=== PATIENT | female | born 1990 | race Caucasian/White ===

== ENCOUNTER 2018-06-13 15:36 | Inpatient (IN) | payer OTHER ==
[2018-06-13] MEDS ORDERED: methylPREDNISolone SOD SUCCI 125 MG/2 ML VIAL IV STA (15:50)
[2018-06-13] MEDS ORDERED: MAGNESIUM SULFATE-D5W PMX 1 GM in DEXTROSE/WATER 1 100ML.BAG IVPB STA (15:50)
[2018-06-13] MEDS ORDERED: SODIUM CHLORIDE 0.9% 500 ML 500 ML IV STA (15:50)
[2018-06-13] MEDS ORDERED: IPRATROPIUM 0.5 MG/2.5 ML NEBU INHALATION STA (15:50)
[2018-06-13] MEDS ORDERED: ALBUTEROL NEBULIZED 2.5 MG/3 ML INHALATION STA (15:50)
[2018-06-13] MEDS ORDERED: TERBUTALINE 1 MG/ML VIAL SQ STA (15:50)
--- NOTE | 2018-06-13 16:00 | ED ---
General Adult HPI - General Chief complaint: Shortness of Breath Stated complaint: SADIE Time Seen by Provider: 06/13/18 15:36 Source: patient, RN notes reviewed Mode of arrival: ambulatory Limitations: no limitations - History of Present Illness Initial comments: This is a 28-year-old female presents emergency Department with a past medical history significant for asthma. Patient comes in today stating over the last couple days her breathing is gotten worse. Patient states today she is so tight she can't get a deep breath and feels extremely short of breath. Patient states she has had a cough over the last couple days ago. Patient denies any sputum production. Patient denies any chest pain. Patient has any palpitations. Patient denies any fever though she had 1 in triage. Patient denies any abdominal pain patient denies nausea vomiting diarrhea. Patient states her symptoms are typical for her asthma attacks. - Related Data Home Medications Medication Instructions Recorded Confirmed Albuterol Inhaler [Ventolin Hfa 2 puff INHALATION RT-Q4H PRN 06/13/18 06/13/18 Inhaler] Allergies Allergy/AdvReac Type Severity Reaction Status Date / Time narcotics AdvReac states "i Uncoded 06/13/18 15:40 do not want any" Review of Systems ROS Statement: Those systems with pertinent positive or pertinent negative responses have been documented in the HPI. ROS Other: All systems not noted in ROS Statement are negative. Past Medical History Past Medical History: Asthma Additional Past Medical History / Comment(s): FX RIGHT WRIST 01/2015, WAS IN [facility] UNTIL 06/2015 History of Any Multi-Drug Resistant Organisms: None Reported Past Surgical History: Orthopedic Surgery Additional Past Surgical History / Comment(s): ORIF LEFT WRIST, PLATE AND SCREWS Past Anesthesia/Blood Transfusion Reactions: No Reported Reaction Past Psychological History: No Psychological Hx Reported Smoking Status: Current every day smoker Past Alcohol Use History: None Reported Past Drug Use History: None Reported - Past Family History Mother Family Medical History: No Reported History General Exam - General Exam Comments Initial Comments: GENERAL: Patient is well-developed and well-nourished. Patient is nontoxic and well- hydrated and is in moderate distress. ENT: Neck is soft and supple. No significant lymphadenopathy is noted. Oropharynx is clear. Moist mucous membranes. Neck has full range of motion without eliciting any pain. EYES: The sclera were anicteric and conjunctiva were pink and moist. Extraocular movements were intact and pupils were equal round and reactive to light. Eyelids were unremarkable. PULMONARY: Patient is diffusely wheezing and has significantly decreased breath sounds. CARDIOVASCULAR: Patient is tachycardic. ABDOMEN: Soft and nontender with normal bowel sounds. No palpable organomegaly was noted. There is no palpable pulsatile mass. SKIN: Skin is clear with no lesions or rashes and otherwise unremarkable. NEUROLOGIC: Patient is alert and oriented x3. Cranial nerves II through XII are grossly intact. Motor and sensory are also intact. Normal speech, volume and content. Symmetrical smile. MUSCULOSKELETAL: Normal extremities with adequate strength and full range of motion. No lower extremity swelling or edema. No calf tenderness. LYMPHATICS: No significant lymphadenopathy is noted PSYCHIATRIC: Normal psychiatric evaluation. Limitations: no limitations Course Vital Signs 06/13/18 06/13/18 06/13/18 15:39 16:04 16:29 Temperature 99.9 F H Pulse Rate 112 H 111 H 113 H Respiratory 28 H Rate Blood Pressure 113/67 O2 Sat by Pulse 91 L Oximetry Medical Decision Making - Medical Decision Making Patient's CAT scan shows no acute abnormality. Patient received multiple breathing treatments in the emergency department as well as steroids and terbutaline. Patient was feeling better however she was still wheezing diffusely and very tight. I spoke with Dr. Evans and he agreed to admit the patient admitted the patient I wrote admitting orders. - Lab Data Result diagrams: 06/13/18 16:08 06/13/18 16:08 Lab Results 06/13/18 06/13/18 Range/Units 16:08 16:08 WBC 9.4 (3.8-10.6) k/uL RBC 5.47 H (3.80-5.40) m/uL Hgb 14.0 (11.4-16.0) gm/dL Hct 44.8 (34.0-46.0) % MCV 82.0 (80.0-100.0) fL MCH 25.7 (25.0-35.0) pg MCHC 31.4 (31.0-37.0) g/dL RDW 16.6 H (11.5-15.5) % Plt Count 198 (150-450) k/uL Neutrophils % 84 % Lymphocytes % 7 % Monocytes % 6 % Eosinophils % 2 % Basophils % 0 % Neutrophils # 7.9 H (1.3-7.7) k/uL Lymphocytes # 0.7 L (1.0-4.8) k/uL Monocytes # 0.5 (0-1.0) k/uL Eosinophils # 0.2 (0-0.7) k/uL Basophils # 0.0 (0-0.2) k/uL Hypochromasia Moderate Anisocytosis Slight Sodium 140 (137-145) mmol/L Potassium 4.4 (3.5-5.1) mmol/L Chloride 103 (98-107) mmol/L Carbon Dioxide 27 (22-30) mmol/L Anion Gap 10 mmol/L BUN 11 (7-17) mg/dL Creatinine 0.60 (0.52-1.04) mg/dL Est GFR (CKD-EPI)AfAm >90 (>60 ml/min/1.73 sqM) Est GFR (CKD-EPI)NonAf >90 (>60 ml/min/1.73 sqM) Glucose 89 (74-99) mg/dL Calcium 9.7 (8.4-10.2) mg/dL Magnesium 1.9 (1.6-2.3) mg/dL Total Bilirubin 0.6 (0.2-1.3) mg/dL AST 90 H (14-36) U/L ALT 116 H (9-52) U/L Alkaline Phosphatase 82 (38-126) U/L Total Protein 7.1 (6.3-8.2) g/dL Albumin 4.1 (3.5-5.0) g/dL Critical Care Time Critical Care Time: Yes Total Critical Care Time: 35 Disposition Clinical Impression: Status asthmaticus Disposition: ADMITTED IP TO THIS HOSP Referrals: None,Stated [Primary Care Provider] - 1-2 days Time of Disposition: 16:54
[2018-06-13 16:35] LABS: Anisocytosis Slight; Basophils % (A) 0 %; Eosinophils # (A) 0.2 k/uL (0-0.7); Eosinophils % (A) 2 %; HCT 44.8 % (34.0-46.0); Hypochromasia Moderate; Lymphocytes # (A) 0.7 k/uL (1.0-4.8); Lymphocytes % (A) 7 %; MCH 25.7 pg (25.0-35.0); MCHC 31.4 g/dL (31.0-37.0); Monocytes # (A) 0.5 k/uL (0-1.0); Monocytes % (A) 6 %; Neutrophils # (A) 7.9 k/uL (1.3-7.7); Neutrophils % (A) 84 %; Platelet Count 198 k/uL (150-450); RBC 5.47 m/uL (3.80-5.40); RDW 16.6 % (11.5-15.5); WBC 9.4 k/uL (3.8-10.6)
[2018-06-13 16:37] LABS: ALT 116 U/L (9-52); AST 90 U/L (14-36); Albumin 4.1 g/dL (3.5-5.0); Alkaline Phosphatase 82 U/L (38-126); Anion Gap 10 mmol/L; Blood Urea Nitrogen 11 mg/dL (7-17); Calcium 9.7 mg/dL (8.4-10.2); Carbon Dioxide 27 mmol/L (22-30); Chloride 103 mmol/L (98-107); Glucose 89 mg/dL (74-99); Magnesium 1.9 mg/dL (1.6-2.3); Potassium 4.4 mmol/L (3.5-5.1); Sodium 140 mmol/L (137-145); Total Bilirubin 0.6 mg/dL (0.2-1.3); Total Protein 7.1 g/dL (6.3-8.2)
[2018-06-13] MEDS ORDERED: SODIUM CHLORIDE 0.9% 1,000 ML IV ONE (16:46)
[2018-06-13] MEDS: IPRATROPIUM-ALBUTEROL 3 ML NEB INHALATION PRN ×2 (17:23→21:19)
--- NOTE | 2018-06-13 17:23 | XR ---
EXAMINATION TYPE: XR chest 2V DATE OF EXAM: 06/13/2018 COMPARISON: None INDICATION: Difficulty breathing asthma current smoker TECHNIQUE: Frontal and lateral views of the chest are obtained. FINDINGS: The heart size is normal. The pulmonary vasculature is normal. The lungs are clear. IMPRESSION: 1. No acute pulmonary process.
[2018-06-13] MEDS: methylPREDNISolone SOD SUCCI 125 MG/2 ML VIAL IV SCH ×2 (20:41→23:30)
[2018-06-14] MEDS ORDERED: ALPRAZolam 0.25 MG TAB PO PRN (00:36)
[2018-06-14] MEDS ORDERED: ACETAMINOPHEN TAB 500 MG TAB PO PRN (00:36)
[2018-06-14 06:09] LABS: Glucose,Whole Blood 121 mg/dL (75-99)
[2018-06-14] MEDS: INSULIN ASPART (NovoLOG) 100 UNIT/ML VIAL SQ SCH ×4 (06:16→22:10)
[2018-06-14] MEDS: methylPREDNISolone SOD SUCCI 125 MG/2 ML VIAL IV SCH ×3 (06:27→17:41)
[2018-06-14] MEDS: PANTOPRAZOLE 40 MG TABLET PO SCH (06:28)
[2018-06-14] MEDS: BUDESONIDE 1 MG/2 ML NEBU INHALATION SCH ×2 (07:33→19:16)
[2018-06-14] MEDS: IPRATROPIUM-ALBUTEROL 3 ML NEB INHALATION SCH ×4 (07:33→19:16)
[2018-06-14] MEDS: FORMOTEROL FUMARATE 20 MCG/2 ML NEBU INHALATION SCH ×2 (07:33→19:16)
[2018-06-14] MEDS: NICOTINE 14MG/24HR PATCH TRANSDERM SCH (08:46)
[2018-06-14] MEDS: LORazepam 0.5 MG TAB PO PRN ×2 (08:46→20:37)
[2018-06-14] MEDS: HEPARIN SODIUM,PORCINE 5,000 UNIT/ML 1 ML VIAL SQ SCH ×2 (08:59→20:41)
--- NOTE | 2018-06-14 09:19 | HP ---
HISTORY AND PHYSICAL CHIEF COMPLAINT: Shortness of breath. HISTORY OF PRESENT ILLNESS: This is a 28-year-old woman with a past medical history of multiple medical problems including history of asthma, history of DJD, history of nicotine dependence, living in the [facility], not being followed by primary care physician in the outpatient setting. Apparently was in [place] for rehabilitation. Patient apparently had a history of cocaine and heroin both snorting and IV usage and patient is complaining of increasing shortness of breath and the patient almost went into status asthmaticus. The patient came to [facility], admitted for further evaluation and treatment. The patient cannot take a deep breath and chest x-ray showed the patient needing breathing treatments. Currently patient 100% non-rebreather and patient admitted for further evaluation and treatment. Patient is feeling slightly better. There is no history of fever, rigors. No history of headache, loss of consciousness, chest pain, palpitations. Chest x-ray is normal at this time. PAST MEDICAL HISTORY: History of asthma, history of fractured wrist, history of smoking, history of substance abuse as mentioned earlier. MEDICATIONS: Prior to admission, albuterol p.r.n. ALLERGIES: NARCOTICS. FAMILY HISTORY: history of diabetes and hypertension in the family. SOCIAL HISTORY: History of cocaine, heroin abuse, smoking. The patient works as a ophthalmology technician. REVIEW OF SYSTEMS: ENT: No diminished hearing or diminished vision. CARDIOVASCULAR: No angina or palpitations. RESPIRATORY: As mentioned earlier. GI; No nausea. : No dysuria. NERVOUS SYSTEM: No numbness or weakness. ALLERGY/IMMUNOLOGY: As mentioned earlier. HEMATOLOGY/ONCOLOGY: No history anemia. ENDOCRINE: No history of diabetes or hypothyroidism. CONSTITUTIONAL: As mentioned earlier. DERMATOLOGY: Negative. RHEUMATOLOGY: Negative. PSYCHIATRY: As mentioned earlier. PHYSICAL EXAMINATION: Patient is alert and oriented x2. Pulse is 103. Blood pressure 170/80, respiration 22, temperature is normal, pulse ox 94% on 6 L. HEENT: Conjunctivae normal. NECK: No jugular venous distension. CARDIOVASCULAR SYSTEM: S1, S2 muffled. RESPIRATORY: Breath sounds diminished in the bases, bilateral scattered rhonchi, no crackles. ABDOMEN: Soft, nontender. LEGS: No edema, no swelling. NERVOUS SYSTEM: Higher functions as mentioned earlier, moves all 4 limbs, no foal motor deficits. LYMPHATICS: No lymph node enlargement in the neck or axillae. SKIN: No ulcer, rash, bleeding. JOINTS: No active arthropathy. LABS: WBC is 9, hemoglobin is 14, sodium 140, potassium 4.4, AST is 90, ALT is 116. ASSESSMENT: 1. Bronchial asthma acute exacerbation with status asthmaticus. 2. Increased AST, ALT, possibly hepatitis of undetermined origin. 3. History of cocaine and heroin abuse. 4. History of fractured wrist. 5. History of polysubstance abuse including nicotine dependence. RECOMMENDATION: In this 28-year-old woman who presented with multiple complex medical issues, will monitor the patient closely, continue with the current management and symptomatic treatment. Will initiate broad-spectrum IV antibiotics, steroids, and intensive bronchodilator treatment. Dr. Cool will be consulted for asthma. Otherwise, continue to monitor. Once the patient is feeling better, the patient will be discharged and further plans further plans to go back to [place]. Once again the prognosis guarded, further recommendation to follow. See orders for details. MMODL / IJN: [id number] /
[2018-06-14 11:53] LABS: Glucose,Whole Blood 167 mg/dL (75-99)
--- NOTE | 2018-06-14 13:45 | CT ---
EXAMINATION TYPE: CT angio chest DATE OF EXAM: 06/14/2018 COMPARISON: Chest x-ray from yesterday HISTORY: Difficulty breathing CT DLP: 203.7 mGycm. Automated Exposure Control for Dose Reduction was Utilized. CONTRAST: CTA scan of the thorax is performed with IV Contrast, patient injected with 100 mL of Isovue 370, pul monary embolism protocol. MIP Images are created on CT scanner and reviewed. FINDINGS: LUNGS: There is focus of groundglass opacity left lung apex axial image 18. There is triangular shape d consolidation and/or atelectasis in the left lower lobe abutting the major fissure extending into p osterior lateral pleural surface with volume loss as the major fissure is retracted posteriorly and i nferiorly. Suspect mucous plugging. Correlate clinically. Right lung shows additional foci of groundglass opacity particularly in the right lower lobe. There i s right middle lobe atelectasis and/or consolidation seen best coronal image 39 abutting the anterior chest wall and mediastinum. Mild peribronchial wall thickening is seen. Areas of bronchial luminal n arrowing for reference left lower lobe axial image 91 and right lower lobe axial image 107 are noted. No pleural effusion or pneumothorax is seen bilaterally. MEDIASTINUM: There is satisfactory enhancement of the pulmonary artery and its branches, there is no CT evidence for pulmonary embolism. There are some prominent borderline thoracic lymph nodes. No c ardiomegaly or pericardial effusion is seen. OTHER: No additional significant abnormality is seen. IMPRESSION: 1. No CT evidence for acute pulmonary embolism. 2. New multifocal areas of endobronchial occlusion suspected mucous plugging with most dense atelecta sis left lower lobe and anterior right middle lobe identified felt new from recent chest x-ray. Addit ional multifocal areas of groundglass opacity seen could reflect developing acute infection. Correlat e clinically.
--- NOTE | 2018-06-14 16:39 | P.CNPUL ---
History of Present Illness Consult date: 06/14/18 Reason for consult: dyspnea, asthma History of present illness: A very pleasant 28-year-old female patient of my history of childhood asthma, also history of polysubstance abuse including crack cocaine smoking and IV heroin who was sent over from [place] as the patient became progressively more short of breath while being rehabilitated for substance abuse. This patient has been there for at least 1-1/2 weeks. She was progressively getting worse. Apparently she was not being given her albuterol solution on a regular basis and she was receiving it only once a day. She subsequently became progressively more short of breath and she started having increased cough congestion. She felt that she was coming down with a respiratory tract infection also. She is a chronic smoker in she is to smoker 1 pack of cigarettes a day. She presented emergency department. She was given back-to- back treatments. She was placed on 100% nonrebreather facemask. Following that a chest x-ray was obtained that showed no evidence of an acute pneumonia. She she was weaned down to 15 L of oxygen by nasal cannula and she was admitted to the medical floor. No altered mentation. No hemoptysis no pleurisy. She is congested and she is having a congested cough with some limited sputum production. She is not using excessive muscle breathing. She tells that she has been maintained on any form of maintenance respiratory medications regarding her bronchial asthma. She has been mainly relying on her albuterol rescue inhaler and solution on estimated basis. She lives in [facility] and she wasn't [place] for rehabilitation. Based on her ongoing hypoxemia , I will obtain a CAT scan of the chest and there is some atelectatic changes and left lung base along with some early consolidation and the possibility of a pneumonia cannot be completely excluded. There is some areas of Mohs a continuation which is probably a Bearden. Underlying groundglass pulmonary infiltrates cannot be completely excluded. Atypical pulmonary infection cannot be completely ruled out. She has no hemoptysis. No symptoms of drug withdrawal for the time being and the patient has gone through withdrawal while and [place].. No reported history of previous ventilator dependent respiratory failure. She has had poor adequate follow-up regarding her bronchial asthma. She has utilize any form of maintenance inhalers. No involvement of ALLERGIES. No nasal polyposis. No skin rashes. Review of Systems Constitutional: Denies chills, Denies fever Eyes: denies as per HPI, denies blurred vision, denies bulging eye, denies decreased vision, denies diplopia, denies discharge, denies dry eye, denies irritation, denies itching, denies pain, denies photophobia, denies loss of peripheral vision, denies loss of vision, denies tunnel vision/blind spots Ears: deny: decreased hearing, ear discharge, earache, tinnitus Ears, nose, mouth and throat: Denies headache, Denies sore throat Breasts: absent: as per HPI, change in shape, gynecomastia, masses, nipple discharge, pain, skin changes, swelling Cardiovascular: Reports decreased exercise tolerance, Reports dyspnea on exertion, Reports shortness of breath Respiratory: Reports congestion, Reports cough, Reports cough with sputum, Reports dyspnea, Reports wheezing Gastrointestinal: Denies abdominal pain, Denies diarrhea, Denies nausea, Denies vomiting Genitourinary: Reports as per HPI Musculoskeletal: Reports as per HPI Musculoskeletal: absent: ankle pain, ankle stiffness, ankle swelling, as per HPI , elbow pain, elbow stiffness, elbow swelling, foot pain, foot stiffness, foot swelling, hand pain, hand stiffness, hand swelling, hip pain, hip stiffness, hip swelling, knee pain, knee stiffness, knee swelling, shoulder pain, shoulder stiffness, shoulder swelling, wrist pain, wrist stiffness, wrist swelling Integumentary: Reports as per HPI Neurological: Reports as per HPI Psychiatric: Reports as per HPI Endocrine: Reports as per HPI Hematologic/Lymphatic: Reports as per HPI Allergic/Immunologic: Reports as per HPI Past Medical History Past Medical History: Asthma Additional Past Medical History / Comment(s): FX RIGHT WRIST 01/2015, WAS IN [place] 06/[place], history of polysubstance abuse including IV heroin and crack cocaine smoking. The patient is a chronic tobacco smoker. She has had previous history of overdose on heroin requiring Narcan administration. History of Any Multi-Drug Resistant Organisms: None Reported Past Surgical History: Orthopedic Surgery Additional Past Surgical History / Comment(s): ORIF LEFT WRIST, PLATE AND SCREWS , Surgery on right wrist. Past Anesthesia/Blood Transfusion Reactions: No Reported Reaction Past Psychological History: No Psychological Hx Reported Smoking Status: Current every day smoker Past Alcohol Use History: None Reported Additional Past Alcohol Use History / Comment(s): STATES STARTED AT AGE 7 (1996) , SMOKES 1 PPD Past Drug Use History: None Reported - Past Family History Mother Family Medical History: Diabetes Mellitus, Hypertension Father Family Medical History: No Reported History Medications and Allergies Home Medications Medication Instructions Recorded Confirmed Type Albuterol Inhaler [Ventolin Hfa 2 puff INHALATION RT-Q4H PRN 06/13/18 06/13/18 History Inhaler] Allergies Allergy/AdvReac Type Severity Reaction Status Date / Time narcotics AdvReac states "i Uncoded 06/13/18 15:40 do not want any" Physical Exam Vitals: Vital Signs Temp Pulse Pulse Resp BP BP Pulse Ox 06/14/18 16:15 110 H 06/14/18 16:08 107 H 93 L 06/14/18 12:15 100 18 124/68 92 L 06/14/18 10:35 92 06/14/18 10:25 88 06/14/18 08:10 97.7 F 98 22 115/76 90 L 06/14/18 07:53 93 06/14/18 07:44 80 06/14/18 07:43 80 06/14/18 07:33 80 95 06/14/18 03:52 97.5 F L 81 22 107/62 90 L 06/14/18 01:45 96 06/14/18 00:00 95 22 115/69 94 L 06/13/18 21:33 104 H 06/13/18 21:19 100 94 L 06/13/18 20:00 97.6 F 106 H 24 117/68 97 06/13/18 19:30 103 H 22 117/80 93 L 06/13/18 19:04 102 H 20 117/80 95 06/13/18 18:30 105 H 24 125/76 94 L 06/13/18 18:00 112 H 27 H 126/83 87 L 06/13/18 17:51 110 H 27 H 126/83 89 L 06/13/18 17:31 107 H 06/13/18 17:21 103 H 06/13/18 17:00 99.5 F 109 H 30 H 122/78 95 Intake and Output 06/14/18 06/14/18 06/14/18 06:59 14:59 22:59 Intake Total 480 Output Total 400 Balance 80 Intake: Oral 480 Output: Urine 400 Other: Voiding Method Toilet # Voids 1 # Bowel Movements 1 Weight 46 kg Patient has been in a mild degree of respiratory distress. No use of accessory muscles of breathing. Head exam was generally normal. There was no scleral icterus or corneal arcus. Mucous membranes were moist. Neck was supple and without jugular venous distension, thyromegaly, or carotid bruits. Carotids were easily palpable bilaterally. There was no adenopathy. Lungs sounds are diminished and there is diffuse expiratory wheezes heard throughout the lung his bilaterally and scattered rhonchi and wheeze Cardiac exam revealed the PMI to be normally situated and sized. The rhythm was regular and no extrasystoles were noted during several minutes of auscultation. The first and second heart sounds were normal and physiologic splitting of the second heart sound was noted. There were no murmurs, rubs, clicks, or gallops. Abdominal exam revealed normal bowel sounds. The abdomen was soft, non-tender, and without masses, organomegaly, or appreciable enlargement of the abdominal aorta. Examination of the extremities revealed easily palpable radial, femoral and pedal pulses. There was no cyanosis, clubbing or edema. Examination of the skin revealed no evidence of significant rashes, suspicious appearing nevi or other concerning lesions. Neurologically awake and alert and there is no focal neurological deficits. Results - Laboratory Findings CBC and BMP: 06/13/18 16:08 06/13/18 16:08 Abnormal lab findings: Abnormal Labs 06/13/18 06/13/18 06/14/18 16:08 16:08 06:08 RBC 5.47 H RDW 16.6 H Neutrophils # 7.9 H Lymphocytes # 0.7 L POC Glucose (mg/dL) 121 H AST 90 H ALT 116 H 06/14/18 11:43 RBC RDW Neutrophils # Lymphocytes # POC Glucose (mg/dL) 167 H AST ALT - Diagnostic Findings Chest x-ray: image reviewed CT scan - chest: image reviewed Assessment and Plan Plan: Assessment 1 acute asthma exacerbation with possibly an underlying left lower lobe pneumonia. The patient has areas of groundglass changes versus some was a continuation secondary to air trapping. Possibility of left lower lobe consolidation/atelectasis raises the concern for left lower lobe pneumonia as evident on the CAT scan of the chest 2 shortness of breath secondary to above 3 acute hypoxic respiratory failure secondary to above 4 history of polysubstance abuse including crack cocaine smoking and IV heroin, currently undergoing rehabilitation [place] 5 poor medical follow regarding bronchial asthma and medical care in general Plan Continue bronchodilators in the form of DuoNeb nebulized with [id number]. Add Pulmicort Respules and Perforomist nebulized treatment twice a day. IV Solu Medrol 60 mg every 6 hours. Cover this patient with a combination of Rocephin and Zithromax as an empiric antibiotic coverage. Collect sputum Gram stain and culture. Mucinex DM for cough and congestion. Nicotine patch. Watch for any withdrawal signs from heroin or cocaine. Heparin subcu for DVT prophylaxis. We'll continue to follow and make further recommendations based on her progress. In general, the patient has had poor medical follow-up on her bronchial asthma. She has been utilizing any form of maintenance inhaled corticosteroids. In addition she is a chronic smoker and she does street drugs including crack cocaine which are obvious exacerbate his of her chronic bronchial asthma. We'll continue to follow.
[2018-06-14 16:56] LABS: Glucose,Whole Blood 140 mg/dL (75-99)
[2018-06-14] MEDS: guaiFENesin-DM 600/30MG 1 EACH TAB.ER.12H PO SCH (17:41)
[2018-06-14] MEDS: AZITHROMYCIN 500 MG in SODIUM CHLORIDE 0.9% 250 ML IVPB SCH (17:41)
--- NOTE | 2018-06-14 20:07 | PN ---
PROGRESS NOTE DATE OF SERVICE: 06/14/2018 This 28-year-old woman was admitted with acute bronchial asthma acute exacerbation from an acute hypoxic respiratory failure from [facility]. Also had a chest CTA per Pulmonary recommendations. The chest CTA showed no evidence of pulmonary embolism, multifocal area of endobronchial occlusion, mucous plugging and atelectasis was noted. Ground-glass opacity was also noted. No chest pain. No palpitations. No fever. PHYSICAL EXAM: Alert and oriented x3. Pulse is 104, blood pressure 119/70, respiration 17, temperature 98.2, pulse ox 98% on 10 L nasal cannula. HEENT: Conjunctivae normal. Oral mucosa moist. Neck is no jugular venous distention. No carotid bruit. No lymph node enlargement. CARDIOVASCULAR: S1, S2. RESPIRATORY: Breath sounds diminished in the bases. Bilateral scattered rhonchi and crackles. ABDOMEN: Soft, nontender. No mass palpable. LEGS: No edema. NERVOUS SYSTEM: Higher function as mentioned earlier. Moves all 4 limbs. No focal motor deficits. LYMPHATIC: No lymphadenopathy in the neck, axillae, groin. LABS: WBC 9.2, hemoglobin is 14, Accu-Cheks noted. Influenza negative. ASSESSMENT: 1. Acute bronchial asthma acute exacerbation with status asthmaticus with possible interstitial pneumonia with acute hypoxic respiratory failure on high-flow oxygen. 2. Increased AST, ALT possibly hepatitis of undetermined origin. 3. Extensive mucous plugging. 4. History of cocaine and heroin abuse. 5. History of fracture wrist. 6. History of polysubstance abuse including nicotine dependence. RECOMMENDATIONS AND DISCUSSION: This 28-year-old woman who presented with multiple complex medical issues, at this time I recommend to continue current management and symptomatic treatment. Otherwise continue to monitor. Continue bronchodilators, steroids and antibiotics. Closely follow with Dr. Cool. Guarded prognosis. Further recommendations to follow. MMODL / IJN: [id number] /
[2018-06-14 21:12] LABS: Glucose,Whole Blood 158 mg/dL (75-99)
[2018-06-15] MEDS: methylPREDNISolone SOD SUCCI 125 MG/2 ML VIAL IV SCH ×5 (00:50→23:21)
[2018-06-15] MEDS: IPRATROPIUM-ALBUTEROL 3 ML NEB INHALATION PRN (04:55)
[2018-06-15 05:53] LABS: Glucose,Whole Blood 118 mg/dL (75-99)
[2018-06-15] MEDS: PANTOPRAZOLE 40 MG TABLET PO SCH (06:35)
[2018-06-15] MEDS: INSULIN ASPART (NovoLOG) 100 UNIT/ML VIAL SQ SCH ×4 (06:36→20:29)
[2018-06-15] MEDS: IPRATROPIUM-ALBUTEROL 3 ML NEB INHALATION SCH ×4 (08:19→20:23)
[2018-06-15] MEDS: FORMOTEROL FUMARATE 20 MCG/2 ML NEBU INHALATION SCH ×2 (08:19→20:23)
[2018-06-15] MEDS: BUDESONIDE 1 MG/2 ML NEBU INHALATION SCH ×2 (08:19→20:23)
[2018-06-15] MEDS: HEPARIN SODIUM,PORCINE 5,000 UNIT/ML 1 ML VIAL SQ SCH ×3 (08:45→20:26)
[2018-06-15] MEDS: NICOTINE 14MG/24HR PATCH TRANSDERM SCH (08:46)
[2018-06-15] MEDS: guaiFENesin-DM 600/30MG 1 EACH TAB.ER.12H PO SCH ×2 (08:46→20:00)
[2018-06-15] MEDS: AZITHROMYCIN 500 MG in SODIUM CHLORIDE 0.9% 250 ML IVPB SCH (09:30)
[2018-06-15] MEDS: LORazepam 0.5 MG TAB PO PRN (09:51)
[2018-06-15 11:25] LABS: Glucose,Whole Blood 118 mg/dL (75-99)
[2018-06-15 11:55] LABS: Anisocytosis Slight; Basophils % (A) 0 %; Eosinophils % (A) 0 %; HCT 44.1 % (34.0-46.0); HGB 14.2 gm/dL (11.4-16.0); Lymphocytes # (A) 0.5 k/uL (1.0-4.8); Lymphocytes % (A) 3 %; MCH 26.2 pg (25.0-35.0); MCHC 32.3 g/dL (31.0-37.0); MCV 81.1 fL (80.0-100.0); Mean Platelet Volume 8.1; Microcytosis Slight; Monocytes # (A) 0.4 k/uL (0-1.0); Monocytes % (A) 2 %; Neutrophils # (A) 18.6 k/uL (1.3-7.7); Neutrophils % (A) 95 %; Platelet Count 231 k/uL (150-450); RBC 5.44 m/uL (3.80-5.40); RDW 17.5 % (11.5-15.5); WBC 19.5 k/uL (3.8-10.6)
[2018-06-15 12:05] LABS: Anion Gap 12 mmol/L; Blood Urea Nitrogen 23 mg/dL (7-17); Calcium 9.7 mg/dL (8.4-10.2); Carbon Dioxide 22 mmol/L (22-30); Chloride 106 mmol/L (98-107); Glucose 107 mg/dL (74-99); Potassium 4.5 mmol/L (3.5-5.1); Sodium 140 mmol/L (137-145)
--- NOTE | 2018-06-15 12:10 | P.PN ---
Subjective Progress Note Date: 06/15/18 Principal diagnosis: Acute asthma exacerbation with possibly an underlying left lower lobe pneumonia A very pleasant 28-year-old female patient of my history of childhood asthma, also history of polysubstance abuse including crack cocaine smoking and IV heroin who was sent over from [place] as the patient became progressively more short of breath while being rehabilitated for substance abuse. This patient has been there for at least 1-1/2 weeks. She was progressively getting worse. Apparently she was not being given her albuterol solution on a regular basis and she was receiving it only once a day. She subsequently became progressively more short of breath and she started having increased cough congestion. She felt that she was coming down with a respiratory tract infection also. She is a chronic smoker in she is to smoker 1 pack of cigarettes a day. She presented emergency department. She was given back-to- back treatments. She was placed on 100% nonrebreather facemask. Following that a chest x-ray was obtained that showed no evidence of an acute pneumonia. She she was weaned down to 15 L of oxygen by nasal cannula and she was admitted to the medical floor. No altered mentation. No hemoptysis no pleurisy. She is congested and she is having a congested cough with some limited sputum production. She is not using excessive muscle breathing. She tells that she has been maintained on any form of maintenance respiratory medications regarding her bronchial asthma. She has been mainly relying on her albuterol rescue inhaler and solution on estimated basis. She lives in [facility] and she wasn't amboy for rehabilitation. Based on her ongoing hypoxemia , I will obtain a CAT scan of the chest and there is some atelectatic changes and left lung base along with some early consolidation and the possibility of a pneumonia cannot be completely excluded. There is some areas of Mohs a continuation which is probably a [place]. Underlying groundglass pulmonary infiltrates cannot be completely excluded. Atypical pulmonary infection cannot be completely ruled out. She has no hemoptysis. No symptoms of drug withdrawal for the time being and the patient has gone through withdrawal while and [place].. No reported history of previous ventilator dependent respiratory failure. She has had poor adequate follow-up regarding her bronchial asthma. She has utilize any form of maintenance inhalers. No involvement of ALLERGIES. No nasal polyposis. No skin rashes. On 06/15/2018 she seen in follow-up on acute care unit, she is awake and alert, in no acute distress, FiO2 is down to 8 L, however patient's O2 sat is only between 85-87%, FiO2 was increased back up to keep the O2 sat at around 90%, lung sounds are less wheezy on today's exam, a few scattered rhonchi. Afebrile , hemodynamically stable, Today's labs have been reviewed, without cell count is 19.5, hemoglobin is 14.2. Influenza screen was negative. Patient is unaccompanied on Zithromax and Rocephin, nebulized bronchodilators, Pulmicort and Perforomist. And is on nicotine patch. She is somewhat irritable, she states she can't sleep, with frequent nursing checks. Believe she may be experiencing some withdrawal symptoms. Will be given a dose of IV Ativan for anxiety. Otherwise she is improving overall. Breathing easier, however not oriented to discharge, still requiring high amount of of oxygen. Objective - Vital Signs Vital signs: Vital Signs Temp 98.1 F 06/15/18 08:30 Pulse 86 06/15/18 11:42 Resp 20 06/15/18 08:30 BP 122/78 06/15/18 08:30 Pulse Ox 92 L 06/15/18 09:51 Intake & Output 06/14/18 06/15/18 06/15/18 18:59 06:59 18:59 Intake Total 1060 540 418 Output Total 1050 Balance 10 540 418 Weight 54.8 kg Intake: IV 300 Azithromycin 500 mg In 250 Sodium Chloride 0.9% 250 ml @ 250 mls/hr IVPB DAILY [facility] Rx#:[id number] cefTRIAXone 1 gm In 50 Sodium Chloride 0.9% 50 ml @ 100 mls/hr IVPB Q24HR [facility] Rx#:[id number] Intake, IV Titration 100 Amount cefTRIAXone 1 gm In 100 Sodium Chloride 0.9% 50 ml @ 100 mls/hr IVPB Q24HR [facility] Rx#:[id number] Oral 960 540 118 Output: Urine 1050 Other: # Voids 2 2 # Bowel Movements 1 - Exam GENERAL EXAM: Alert, somewhat irritable, 28-year-old white female, currently on 8 L of oxygen per high flow cannula comfortable in no apparent distress. HEAD: Normocephalic/atraumatic. EYES: Normal reaction of pupils, equal size. Conjunctiva pink, sclera white. NOSE: Clear with pink turbinates. THROAT: No erythema or exudates. NECK: No masses, no JVD, no thyroid enlargement, no adenopathy. CHEST: No chest wall deformity. Symmetrical expansion. LUNGS: Equal air entry with scattered rhonchi and wheezes CVS: Regular rate and rhythm, normal S1 and S2, no gallops, no murmurs, no rubs ABDOMEN: Soft, nontender. No hepatosplenomegaly, normal bowel sounds, no guarding or rigidity. EXTREMITIES: No clubbing, no edema, no cyanosis, 2+ pulses and upper and lower extremities. MUSCULOSKELETAL: Muscle strength and tone normal. SPINE: No scoliosis or deformity SKIN: No rashes CENTRAL NERVOUS SYSTEM: Alert and oriented -3. No focal deficits, tone is normal in all 4 extremities. PSYCHIATRIC: Alert and oriented -3. Appropriate affect. Intact judgment and insight. - Labs CBC & Chem 7: 06/13/18 16:08 06/13/18 16:08 Labs: Abnormal Lab Results - Last 24 Hours (Table) 06/14/18 06/14/18 06/15/18 Range/Units 16:45 21:10 05:51 POC Glucose (mg/dL) 140 H 158 H 118 H (75-99) mg/dL 06/15/18 Range/Units 11:18 POC Glucose (mg/dL) 118 H (75-99) mg/dL Microbiology - Last 24 Hours (Table) 06/13/18 17:00 Blood Culture - Preliminary Blood No Growth after 24 hours Assessment and Plan Plan: Assessment: 1 acute asthma exacerbation with possibly an underlying left lower lobe pneumonia. The patient has areas of groundglass changes versus some was a continuation secondary to air trapping. Possibility of left lower lobe consolidation/atelectasis raises the concern for left lower lobe pneumonia as evident on the CAT scan of the chest 2 shortness of breath secondary to above 3 acute hypoxic respiratory failure secondary to above 4 history of polysubstance abuse including crack cocaine smoking and IV heroin, currently undergoing rehabilitation [place] 5 poor medical follow regarding bronchial asthma and medical care in general Plan: Continue current medical treatment, patient still requiring high amounts of oxygen, she is improving, but not ready for discharge, continue with IV steroids , antibiotic coverage, influenza screen was negative, cultures are negative thus far. Continue nicotine patch, patient is experiencing some withdrawal signs today, more irritable, and has been ordered. I performed a history & physical examination of the patient and discussed their management with my nurse practitioner, Adina Camacho. I reviewed the nurse practitioner's note and agree with the documented findings and plan of care. Lung sounds are positive for scattered wheezes, and rhonchi. The findings and the impression was discussed with the patient. I attest to the documentation by the nurse practitioner. Time with Patient: Less than 30
--- NOTE | 2018-06-15 12:58 | P.HPIM ---
History of Present Illness Patient is admitted for asthma exacerbation does smoke is presently in 10 L of oxygen still wheezing on exam. Patient is presently on azithromycin Constitutional: Denied any fatigue denied any fever. Cardio vascular: denied any chest pain, palpitations Gastrointestinal denied any nausea vomiting Pulmonary: As mentioned in HPI Neurologic denied any new focal deficits All inpatient medications were reviewed and appropriate changes in these medications as dictated in the interval history and assessment and plan. Review of Systems PHYSICAL EXAMINATION: GENERAL: The patient is alert and oriented x3, not in any acute distress. Well developed, well nourished. HEENT: Pupils are round and equally reacting to light. EOMI. No scleral icterus. No conjunctival pallor. Normocephalic, atraumatic. No pharyngeal erythema. No thyromegaly. CARDIOVASCULAR: S1 and S2 present. No murmurs, rubs, or gallops. PULMONARY: Significant expiratory wheezing mildly decreased air entry into bilateral lung lange ABDOMEN: Soft, nontender, nondistended, normoactive bowel sounds. No palpable organomegaly. MUSCULOSKELETAL: No joint swelling or deformity. EXTREMITIES: No cyanosis, clubbing, or pedal edema. NEUROLOGICAL: Gross neurological examination did not reveal any focal deficits. SKIN: No rashes. Past Medical History Past Medical History: Asthma Additional Past Medical History / Comment(s): FX RIGHT WRIST 01/2015, WAS IN [place] UNTIL 06/2015, history of polysubstance abuse including IV heroin and crack cocaine smoking. The patient is a chronic tobacco smoker. She has had previous history of overdose on heroin requiring Narcan administration. History of Any Multi-Drug Resistant Organisms: None Reported Past Surgical History: Orthopedic Surgery Additional Past Surgical History / Comment(s): ORIF LEFT WRIST, PLATE AND SCREWS , Surgery on right wrist. Past Anesthesia/Blood Transfusion Reactions: No Reported Reaction Past Psychological History: No Psychological Hx Reported Smoking Status: Current every day smoker Past Alcohol Use History: None Reported Additional Past Alcohol Use History / Comment(s): STATES STARTED AT AGE 7 (1996) , SMOKES 1 PPD Past Drug Use History: None Reported - Past Family History Mother Family Medical History: Diabetes Mellitus, Hypertension Father Family Medical History: No Reported History Medications and Allergies Home Medications Medication Instructions Recorded Confirmed Type Albuterol Inhaler [Ventolin Hfa 2 puff INHALATION RT-Q4H PRN 06/13/18 06/13/18 History Inhaler] Allergies Allergy/AdvReac Type Severity Reaction Status Date / Time narcotics AdvReac states "i Uncoded 06/13/18 15:40 do not want any" Physical Exam Vitals: Vital Signs Temp Pulse Pulse Resp BP Pulse Ox 06/15/18 11:42 86 06/15/18 11:34 80 06/15/18 09:51 92 L 06/15/18 08:35 84 06/15/18 08:30 98.1 F 88 97 20 122/78 84 L 06/15/18 08:21 86 95 06/15/18 05:04 78 06/15/18 04:55 78 06/15/18 04:20 98.2 F 95 22 116/61 93 L 06/14/18 20:40 110 H 22 114/69 92 L 06/14/18 19:33 98 06/14/18 19:27 110 H 06/14/18 19:25 99 06/14/18 19:14 108 H 06/14/18 16:15 98.6 F 110 H 104 H 19 119/70 99 06/14/18 16:08 107 H 93 L Intake and Output 06/14/18 06/15/18 06/15/18 22:59 06:59 14:59 Intake Total 480 540 418 Output Total 300 Balance 180 540 418 Intake: IV 300 Azithromycin 500 mg In 250 Sodium Chloride 0.9% 250 ml @ 250 mls/hr IVPB DAILY [facility] Rx#:[id number] cefTRIAXone 1 gm In 50 Sodium Chloride 0.9% 50 ml @ 100 mls/hr IVPB Q24HR [facility] Rx#:[id number] Oral 480 540 118 Output: Urine 300 Other: # Voids 2 2 Weight 54.8 kg Results CBC & Chem 7: 06/15/18 11:25 06/15/18 11:25 Labs: Abnormal Lab Results - Last 24 Hours (Table) 06/14/18 06/14/18 06/15/18 Range/Units 16:45 21:10 05:51 WBC (3.8-10.6) k/uL RBC (3.80-5.40) m/uL RDW (11.5-15.5) % Neutrophils # (1.3-7.7) k/uL Lymphocytes # (1.0-4.8) k/uL BUN (7-17) mg/dL Glucose (74-99) mg/dL POC Glucose (mg/dL) 140 H 158 H 118 H (75-99) mg/dL 06/15/18 06/15/18 06/15/18 Range/Units 11:18 11:25 11:25 WBC 19.5 H (3.8-10.6) k/uL RBC 5.44 H (3.80-5.40) m/uL RDW 17.5 H (11.5-15.5) % Neutrophils # 18.6 H (1.3-7.7) k/uL Lymphocytes # 0.5 L (1.0-4.8) k/uL BUN 23 H (7-17) mg/dL Glucose 107 H (74-99) mg/dL POC Glucose (mg/dL) 118 H (75-99) mg/dL Microbiology - Last 24 Hours (Table) 06/13/18 17:00 Blood Culture - Preliminary Blood No Growth after 24 hours Thrombosis Risk Factor Assmnt - Choose All That Apply Any of the Below Risk Factors Present?: Yes Each Factor Represents 1 point: Abnormal pulmonary function (COPD) Thrombosis Risk Factor Assessment Total Risk Factor Score: 1 Thrombosis Risk Factor Assessment Level: Low Risk Assessment and Plan Plan: -Acute asthma exacerbation with possibility of mild left lower lobe pneumonia: Patient will be continued on present antibiotic ceftriaxone and azithromycin. Continue with systemic steroids -IV heroine use: My suspicion is low that patient has any withdrawals at this time. We will obtain acute hepatitis panel. -Acute respiratory failure secondary to asthma exacerbation -Nicotine abuse: Counseling was provided
[2018-06-15 16:39] LABS: Glucose,Whole Blood 147 mg/dL (75-99)
[2018-06-15 18:54] LABS: Hepatitis A Antibody IgM Non-Reactive (Non-Reactive); Hepatitis B Core IgM Non-Reactive (Non-Reactive)
[2018-06-15 20:26] LABS: Glucose,Whole Blood 138 mg/dL (75-99)
[2018-06-16 05:43] LABS: Glucose,Whole Blood 125 mg/dL (75-99)
[2018-06-16] MEDS: methylPREDNISolone SOD SUCCI 125 MG/2 ML VIAL IV SCH (05:56)
[2018-06-16] MEDS: PANTOPRAZOLE 40 MG TABLET PO SCH (05:56)
[2018-06-16] MEDS: INSULIN ASPART (NovoLOG) 100 UNIT/ML VIAL SQ SCH ×4 (05:58→22:07)
[2018-06-16] MEDS: LORazepam 0.5 MG TAB PO PRN ×2 (06:12→21:34)
[2018-06-16 07:47] LABS: Anisocytosis Slight; Basophils % (A) 0 %; Eosinophils # (A) 0.1 k/uL (0-0.7); Eosinophils % (A) 1 %; HGB 13.8 gm/dL (11.4-16.0); Hypochromasia Slight; Lymphocytes # (A) 0.7 k/uL (1.0-4.8); Lymphocytes % (A) 5 %; MCH 24.8 pg (25.0-35.0); MCHC 30.7 g/dL (31.0-37.0); MCV 80.9 fL (80.0-100.0); Mean Platelet Volume 7.2; Monocytes # (A) 0.5 k/uL (0-1.0); Monocytes % (A) 3 %; Neutrophils # (A) 12.8 k/uL (1.3-7.7); Neutrophils % (A) 91 %; Platelet Count 247 k/uL (150-450); RBC 5.56 m/uL (3.80-5.40); RDW 17.1 % (11.5-15.5); WBC 14.2 k/uL (3.8-10.6)
[2018-06-16] MEDS: FORMOTEROL FUMARATE 20 MCG/2 ML NEBU INHALATION SCH ×2 (07:47→19:14)
[2018-06-16] MEDS: IPRATROPIUM-ALBUTEROL 3 ML NEB INHALATION SCH ×4 (07:47→19:14)
[2018-06-16] MEDS: BUDESONIDE 1 MG/2 ML NEBU INHALATION SCH ×2 (07:47→19:14)
[2018-06-16 08:03] LABS: Chloride 105 mmol/L (98-107)
[2018-06-16 08:05] LABS: Anion Gap 8 mmol/L; Blood Urea Nitrogen 30 mg/dL (7-17); Calcium 9.8 mg/dL (8.4-10.2); Carbon Dioxide 26 mmol/L (22-30); Glucose 109 mg/dL (74-99); Potassium 4.9 mmol/L (3.5-5.1); Sodium 139 mmol/L (137-145)
[2018-06-16] MEDS: guaiFENesin-DM 600/30MG 1 EACH TAB.ER.12H PO SCH ×2 (09:15→22:07)
[2018-06-16] MEDS: AZITHROMYCIN 500 MG TAB PO SCH (09:16)
[2018-06-16] MEDS: HEPARIN SODIUM,PORCINE 5,000 UNIT/ML 1 ML VIAL SQ SCH ×2 (09:20→22:06)
[2018-06-16] MEDS: NICOTINE 14MG/24HR PATCH TRANSDERM SCH (09:22)
[2018-06-16 11:30] LABS: Glucose,Whole Blood 113 mg/dL (75-99)
--- NOTE | 2018-06-16 12:01 | P.PN ---
Subjective Patient is admitted for asthma exacerbation does smoke is presently in 10 L of oxygen still wheezing on exam. Patient is presently on azithromycin 06/16/2018 Patient is saturating at 90% on 4 L of oxygen. May need a day more will cut down the dose of steroids Constitutional: Denied any fatigue denied any fever. Cardio vascular: denied any chest pain, palpitations Gastrointestinal denied any nausea vomiting Pulmonary: As mentioned in HPI Neurologic denied any new focal deficits Objective - Vital Signs Vital signs: Vital Signs Temp 97.4 F L 06/16/18 08:00 Pulse 104 H 06/16/18 11:37 Resp 20 06/16/18 08:00 BP 112/72 06/16/18 08:00 Pulse Ox 90 L 06/16/18 11:08 Intake & Output 06/15/18 06/16/18 06/16/18 18:59 06:59 18:59 Intake Total 536 750 168 Balance 536 750 168 Weight 55.1 kg Intake: IV 300 50 Azithromycin 500 mg In 250 Sodium Chloride 0.9% 250 ml @ 250 mls/hr IVPB DAILY [facility] Rx#:[id number] cefTRIAXone 1 gm In 50 50 Sodium Chloride 0.9% 50 ml @ 100 mls/hr IVPB Q24HR [facility] Rx#:[id number] Oral 236 750 118 Other: Voiding Method Toilet Toilet # Voids 1 3 1 # Bowel Movements 1 - Exam PHYSICAL EXAMINATION: GENERAL: The patient is alert and oriented x3, not in any acute distress. Well developed, well nourished. HEENT: Pupils are round and equally reacting to light. EOMI. No scleral icterus. No conjunctival pallor. Normocephalic, atraumatic. No pharyngeal erythema. No thyromegaly. CARDIOVASCULAR: S1 and S2 present. No murmurs, rubs, or gallops. PULMONARY: X-rays of the wheezing which significantly improved ABDOMEN: Soft, nontender, nondistended, normoactive bowel sounds. No palpable organomegaly. MUSCULOSKELETAL: No joint swelling or deformity. EXTREMITIES: No cyanosis, clubbing, or pedal edema. NEUROLOGICAL: Gross neurological examination did not reveal any focal deficits. SKIN: No rashes. - Labs CBC & Chem 7: 06/16/18 07:16 06/16/18 07:16 Labs: Abnormal Lab Results - Last 24 Hours (Table) 0206/15/18 06/15/18 Range/Units 11:25 11:25 11:25 WBC 19.5 H (3.8-10.6) k/uL RBC 5.44 H (3.80-5.40) m/uL MCH (25.0-35.0) pg MCHC (31.0-37.0) g/dL RDW 17.5 H (11.5-15.5) % Neutrophils # 18.6 H (1.3-7.7) k/uL Lymphocytes # 0.5 L (1.0-4.8) k/uL BUN 23 H (7-17) mg/dL Glucose 107 H (74-99) mg/dL POC Glucose (mg/dL) (75-99) mg/dL Hep C IgG Ab Reactive H (Non-Reactive) 06/15/18 06/15/18 06/16/18 Range/Units 16:35 20:23 05:41 WBC (3.8-10.6) k/uL RBC (3.80-5.40) m/uL MCH (25.0-35.0) pg MCHC (31.0-37.0) g/dL RDW (11.5-15.5) % Neutrophils # (1.3-7.7) k/uL Lymphocytes # (1.0-4.8) k/uL BUN (7-17) mg/dL Glucose (74-99) mg/dL POC Glucose (mg/dL) 147 H 138 H 125 H (75-99) mg/dL Hep C IgG Ab (Non-Reactive) 06/16/18 06/16/18 06/16/18 Range/Units 07:16 07:16 11:25 WBC 14.2 H (3.8-10.6) k/uL RBC 5.56 H (3.80-5.40) m/uL MCH 24.8 L (25.0-35.0) pg MCHC 30.7 L (31.0-37.0) g/dL RDW 17.1 H (11.5-15.5) % Neutrophils # 12.8 H (1.3-7.7) k/uL Lymphocytes # 0.7 L (1.0-4.8) k/uL BUN 30 H (7-17) mg/dL Glucose 109 H (74-99) mg/dL POC Glucose (mg/dL) 113 H (75-99) mg/dL Hep C IgG Ab (Non-Reactive) Microbiology - Last 24 Hours (Table) 06/13/18 17:00 Blood Culture - Preliminary Blood No Growth after 48 hours Assessment and Plan Plan: -Acute asthma exacerbation with possibility of mild left lower lobe pneumonia: Patient will be continued on present antibiotic ceftriaxone and azithromycin. Continue with systemic steroids -IV heroine use: She doesn't have any withdrawals. Patient does have hepatitis C Will need to follow with gastroenterology as an outpatient -Acute respiratory failure secondary to asthma exacerbation -Nicotine abuse: Counseling was provided
[2018-06-16 16:50] LABS: Glucose,Whole Blood 151 mg/dL (75-99)
--- NOTE | 2018-06-16 17:15 | P.PN ---
Subjective Progress Note Date: 06/16/18 Principal diagnosis: Acute asthma exacerbation with possibly an underlying left lower lobe pneumonia A very pleasant 28-year-old female patient of my history of childhood asthma, also history of polysubstance abuse including crack cocaine smoking and IV heroin who was sent over from [place] as the patient became progressively more short of breath while being rehabilitated for substance abuse. This patient has been there for at least 1-1/2 weeks. She was progressively getting worse. Apparently she was not being given her albuterol solution on a regular basis and she was receiving it only once a day. She subsequently became progressively more short of breath and she started having increased cough congestion. She felt that she was coming down with a respiratory tract infection also. She is a chronic smoker in she is to smoker 1 pack of cigarettes a day. She presented emergency department. She was given back-to- back treatments. She was placed on 100% nonrebreather facemask. Following that a chest x-ray was obtained that showed no evidence of an acute pneumonia. She she was weaned down to 15 L of oxygen by nasal cannula and she was admitted to the medical floor. No altered mentation. No hemoptysis no pleurisy. She is congested and she is having a congested cough with some limited sputum production. She is not using excessive muscle breathing. She tells that she has been maintained on any form of maintenance respiratory medications regarding her bronchial asthma. She has been mainly relying on her albuterol rescue inhaler and solution on estimated basis. She lives in [facility] and she wasn't clear for rehabilitation. Based on her ongoing hypoxemia , I will obtain a CAT scan of the chest and there is some atelectatic changes and left lung base along with some early consolidation and the possibility of a pneumonia cannot be completely excluded. There is some areas of Mohs a continuation which is probably a [place]. Underlying groundglass pulmonary infiltrates cannot be completely excluded. Atypical pulmonary infection cannot be completely ruled out. She has no hemoptysis. No symptoms of drug withdrawal for the time being and the patient has gone through withdrawal while and [place].. No reported history of previous ventilator dependent respiratory failure. She has had poor adequate follow-up regarding her bronchial asthma. She has utilize any form of maintenance inhalers. No involvement of ALLERGIES. No nasal polyposis. No skin rashes. On 06/15/2018 she seen in follow-up on acute care unit, she is awake and alert, in no acute distress, FiO2 is down to 8 L, however patient's O2 sat is only between 85-87%, FiO2 was increased back up to keep the O2 sat at around 90%, lung sounds are less wheezy on today's exam, a few scattered rhonchi. Afebrile , hemodynamically stable, Today's labs have been reviewed, without cell count is 19.5, hemoglobin is 14.2. Influenza screen was negative. Patient is unaccompanied on Zithromax and Rocephin, nebulized bronchodilators, Pulmicort and Perforomist. And is on nicotine patch. She is somewhat irritable, she states she can't sleep, with frequent nursing checks. Believe she may be experiencing some withdrawal symptoms. Will be given a dose of IV Ativan for anxiety. Otherwise she is improving overall. Breathing easier, however not oriented to discharge, still requiring high amount of of oxygen. On 06/16/2017 patient seen in follow-up. Patient is breathing easier today, FiO2 is down to 5 L per high flow nasal cannula, and has been intermittently wearing 35% Ventimask, her pulse ox is around 90-91%. Afebrile, hemodynamically stable. Blood culture showed no growth. Empiric antibiotics in the form of Zithromax and Rocephin continue. Overall patient is slightly less congested and bronchospastic on today's exam, will continue weaning oxygen , continue with IV Solu-Medrol and breathing treatments. Objective - Vital Signs Vital signs: Vital Signs Temp 97.9 F 06/16/18 15:56 Pulse 89 06/16/18 15:56 Resp 20 06/16/18 16:00 BP 107/64 06/16/18 15:56 Pulse Ox 91 L 06/16/18 15:56 Intake & Output 06/15/18 06/16/18 06/16/18 18:59 06:59 18:59 Intake Total 536 750 348 Balance 536 750 348 Weight 55.1 kg Intake: IV 300 50 Azithromycin 500 mg In 250 Sodium Chloride 0.9% 250 ml @ 250 mls/hr IVPB DAILY [facility] Rx#:[id number] cefTRIAXone 1 gm In 50 50 Sodium Chloride 0.9% 50 ml @ 100 mls/hr IVPB Q24HR [facility] Rx#:[id number] Oral 236 750 298 Other: Voiding Method Toilet Toilet # Voids 1 3 1 # Bowel Movements 1 - Exam GENERAL EXAM: Alert, somewhat irritable, 28-year-old white female, currently on 8 L of oxygen per high flow cannula comfortable in no apparent distress. HEAD: Normocephalic/atraumatic. EYES: Normal reaction of pupils, equal size. Conjunctiva pink, sclera white. NOSE: Clear with pink turbinates. THROAT: No erythema or exudates. NECK: No masses, no JVD, no thyroid enlargement, no adenopathy. CHEST: No chest wall deformity. Symmetrical expansion. LUNGS: Equal air entry with scattered rhonchi and wheezes CVS: Regular rate and rhythm, normal S1 and S2, no gallops, no murmurs, no rubs ABDOMEN: Soft, nontender. No hepatosplenomegaly, normal bowel sounds, no guarding or rigidity. EXTREMITIES: No clubbing, no edema, no cyanosis, 2+ pulses and upper and lower extremities. MUSCULOSKELETAL: Muscle strength and tone normal. SPINE: No scoliosis or deformity SKIN: No rashes CENTRAL NERVOUS SYSTEM: Alert and oriented -3. No focal deficits, tone is normal in all 4 extremities. PSYCHIATRIC: Alert and oriented -3. Appropriate affect. Intact judgment and insight. - Labs CBC & Chem 7: 06/16/18 07:16 06/16/18 07:16 Labs: Abnormal Lab Results - Last 24 Hours (Table) 06/15/18 06/15/18 06/16/18 Range/Units 11:25 20:23 05:41 WBC (3.8-10.6) k/uL RBC (3.80-5.40) m/uL MCH (25.0-35.0) pg MCHC (31.0-37.0) g/dL RDW (11.5-15.5) % Neutrophils # (1.3-7.7) k/uL Lymphocytes # (1.0-4.8) k/uL BUN (7-17) mg/dL Glucose (74-99) mg/dL POC Glucose (mg/dL) 138 H 125 H (75-99) mg/dL Hep C IgG Ab Reactive H (Non-Reactive) 06/16/18 06/16/18 06/16/18 Range/Units 07:16 07:16 11:25 WBC 14.2 H (3.8-10.6) k/uL RBC 5.56 H (3.80-5.40) m/uL MCH 24.8 L (25.0-35.0) pg MCHC 30.7 L (31.0-37.0) g/dL RDW 17.1 H (11.5-15.5) % Neutrophils # 12.8 H (1.3-7.7) k/uL Lymphocytes # 0.7 L (1.0-4.8) k/uL BUN 30 H (7-17) mg/dL Glucose 109 H (74-99) mg/dL POC Glucose (mg/dL) 113 H (75-99) mg/dL Hep C IgG Ab (Non-Reactive) 06/16/18 Range/Units 16:45 WBC (3.8-10.6) k/uL RBC (3.80-5.40) m/uL MCH (25.0-35.0) pg MCHC (31.0-37.0) g/dL RDW (11.5-15.5) % Neutrophils # (1.3-7.7) k/uL Lymphocytes # (1.0-4.8) k/uL BUN (7-17) mg/dL Glucose (74-99) mg/dL POC Glucose (mg/dL) 151 H (75-99) mg/dL Hep C IgG Ab (Non-Reactive) Microbiology - Last 24 Hours (Table) 06/13/18 17:00 Blood Culture - Preliminary Blood No Growth after 48 hours Assessment and Plan Plan: Assessment: 1 acute asthma exacerbation with possibly an underlying left lower lobe pneumonia. The patient has areas of groundglass changes versus some was a continuation secondary to air trapping. Possibility of left lower lobe consolidation/atelectasis raises the concern for left lower lobe pneumonia as evident on the CAT scan of the chest 2 shortness of breath secondary to above 3 acute hypoxic respiratory failure secondary to above 4 history of polysubstance abuse including crack cocaine smoking and IV heroin, currently undergoing rehabilitation [place] 5 poor medical follow regarding bronchial asthma and medical care in general Plan: Continue with current medical treatment, IV steroids, and Zithromax and Rocephin , and FiO2, encourage deep breathing and coughing. Patient is improving, possible discharge in next 24 hours back to [place] rehab facility if the FiO2 can be weaned further and patient continues to improve. I performed a history & physical examination of the patient and discussed their management with my nurse practitioner, Adina Camacho. I reviewed the nurse practitioner's note and agree with the documented findings and plan of care. Lung sounds are positive for scattered wheezes, and rhonchi. The findings and the impression was discussed with the patient. I attest to the documentation by the nurse practitioner. Time with Patient: Less than 30
[2018-06-16 20:45] LABS: Glucose,Whole Blood 114 mg/dL (75-99)
[2018-06-16] MEDS: methylPREDNISolone SOD SUCCI 40 MG/ML 1 ML VIAL IV SCH (21:31)
[2018-06-17] MEDS: INSULIN ASPART (NovoLOG) 100 UNIT/ML VIAL SQ SCH ×4 (06:25→22:31)
[2018-06-17 06:26] LABS: Glucose,Whole Blood 112 mg/dL (75-99)
[2018-06-17] MEDS: PANTOPRAZOLE 40 MG TABLET PO SCH (06:27)
[2018-06-17] MEDS: BUDESONIDE 1 MG/2 ML NEBU INHALATION SCH ×2 (08:34→20:08)
[2018-06-17] MEDS: FORMOTEROL FUMARATE 20 MCG/2 ML NEBU INHALATION SCH ×2 (08:34→20:08)
[2018-06-17] MEDS: IPRATROPIUM-ALBUTEROL 3 ML NEB INHALATION SCH ×4 (08:34→20:10)
[2018-06-17] MEDS: guaiFENesin-DM 600/30MG 1 EACH TAB.ER.12H PO SCH ×2 (09:02→20:36)
[2018-06-17] MEDS: AZITHROMYCIN 500 MG TAB PO SCH (09:02)
[2018-06-17] MEDS: NICOTINE 14MG/24HR PATCH TRANSDERM SCH (09:02)
[2018-06-17] MEDS: methylPREDNISolone SOD SUCCI 40 MG/ML 1 ML VIAL IV SCH ×2 (09:03→20:35)
[2018-06-17] MEDS: HEPARIN SODIUM,PORCINE 5,000 UNIT/ML 1 ML VIAL SQ SCH ×2 (09:03→22:31)
[2018-06-17 11:50] LABS: Glucose,Whole Blood 89 mg/dL (75-99)
--- NOTE | 2018-06-17 17:02 | P.PN ---
Subjective Progress Note Date: 06/17/18 Principal diagnosis: Acute exacerbation of moderate intermittent asthma, complicated by suspected underlying left lower lobe pneumonia. A very pleasant 28-year-old female patient of my history of childhood asthma, also history of polysubstance abuse including crack cocaine smoking and IV heroin who was sent over from [place] as the patient became progressively more short of breath while being rehabilitated for substance abuse. This patient has been there for at least 1-1/2 weeks. She was progressively getting worse. Apparently she was not being given her albuterol solution on a regular basis and she was receiving it only once a day. She subsequently became progressively more short of breath and she started having increased cough congestion. She felt that she was coming down with a respiratory tract infection also. She is a chronic smoker in she is to smoker 1 pack of cigarettes a day. She presented emergency department. She was given back-to- back treatments. She was placed on 100% nonrebreather facemask. Following that a chest x-ray was obtained that showed no evidence of an acute pneumonia. She she was weaned down to 15 L of oxygen by nasal cannula and she was admitted to the medical floor. No altered mentation. No hemoptysis no pleurisy. She is congested and she is having a congested cough with some limited sputum production. She is not using excessive muscle breathing. She tells that she has been maintained on any form of maintenance respiratory medications regarding her bronchial asthma. She has been mainly relying on her albuterol rescue inhaler and solution on estimated basis. She lives in [facility] Based on her ongoing hypoxemia , I will obtain a CAT scan of the chest and there is some atelectatic changes and left lung base along with some early consolidation and the possibility of a pneumonia cannot be completely excluded. There is some areas of Mohs a continuation which is probably a [place]. Underlying groundglass pulmonary infiltrates cannot be completely excluded. Atypical pulmonary infection cannot be completely ruled out. She has no hemoptysis. No symptoms of drug withdrawal for the time being and the patient has gone through withdrawal while and [place].. No reported history of previous ventilator dependent respiratory failure. She has had poor adequate follow-up regarding her bronchial asthma. She has utilize any form of maintenance inhalers. No involvement of ALLERGIES. No nasal polyposis. No skin rashes. On 06/15/2018 she seen in follow-up on acute care unit, she is awake and alert, in no acute distress, FiO2 is down to 8 L, however patient's O2 sat is only between 85-87%, FiO2 was increased back up to keep the O2 sat at around 90%, lung sounds are less wheezy on today's exam, a few scattered rhonchi. Afebrile , hemodynamically stable, Today's labs have been reviewed, without cell count is 19.5, hemoglobin is 14.2. Influenza screen was negative. Patient is unaccompanied on Zithromax and Rocephin, nebulized bronchodilators, Pulmicort and Perforomist. And is on nicotine patch. She is somewhat irritable, she states she can't sleep, with frequent nursing checks. Believe she may be experiencing some withdrawal symptoms. Will be given a dose of IV Ativan for anxiety. Otherwise she is improving overall. Breathing easier, however not oriented to discharge, still requiring high amount of of oxygen. On 06/16/2017 patient seen in follow-up. Patient is breathing easier today, FiO2 is down to 5 L per high flow nasal cannula, and has been intermittently wearing 35% Ventimask, her pulse ox is around 90-91%. Afebrile, hemodynamically stable. Blood culture showed no growth. Empiric antibiotics in the form of Zithromax and Rocephin continue. Overall patient is slightly less congested and bronchospastic on today's exam, will continue weaning oxygen , continue with IV Solu-Medrol and breathing treatments. The patient was seen today 06/17/2018 in follow-up on the selective care unit. She is awake and alert in no acute distress. She is doing quite a bit better today as compared to yesterday. She is down to 2 L/m per nasal cannula to maintain O2 saturations in the 90s. She's been up ambulating in the hallway. She is coughing less and breathing easier. Still not quite back to her baseline. She is still on ceftriaxone and azithromycin. Bronchodilators. Pulmicort and Perforomist inhalations. IV Solu-Medrol. NicoDerm patch remains in place. She is more calm and cooperative today. Objective - Vital Signs Vital signs: Vital Signs Temp 97.8 F 06/17/18 11:54 Pulse 88 06/17/18 16:25 Resp 18 06/17/18 11:54 BP 112/68 06/17/18 11:54 Pulse Ox 97 06/17/18 11:54 Intake & Output 06/16/18 06/17/18 06/17/18 18:59 06:59 18:59 Intake Total 348 1200 Balance 348 1200 Weight 55 kg Intake: IV 50 cefTRIAXone 1 gm In 50 Sodium Chloride 0.9% 50 ml @ 100 mls/hr IVPB Q24HR [facility] Rx#:[id number] Oral 298 1200 Other: Voiding Method Toilet Toilet Toilet # Voids 1 3 # Bowel Movements 1 - Exam GENERAL EXAM: Alert, active, comfortable in no apparent distress. On 2 L/m per nasal cannula. HEAD: Normocephalic. EYES: Normal reaction of pupils, equal size. NOSE: Clear with pink turbinates. THROAT: No erythema or exudates. NECK: No masses, no JVD. CHEST: No chest wall deformity. LUNGS: Equal air entry with few scattered end expiratory wheeze, rhonchi. CVS: S1 and S2 normal with no audible murmur, regular rhythm. ABDOMEN: No hepatosplenomegaly, normal bowel sounds, no guarding or rigidity. SPINE: No scoliosis or deformity SKIN: No rashes CENTRAL NERVOUS SYSTEM: No focal deficits, tone is normal in all 4 extremities. EXTREMITIES: There is no peripheral edema. No clubbing, no cyanosis. Peripheral pulses are intact. - Labs CBC & Chem 7: 06/16/18 07:16 06/16/18 07:16 Labs: Abnormal Lab Results - Last 24 Hours (Table) 06/16/18 06/17/18 Range/Units 20:43 06:25 POC Glucose (mg/dL) 114 H 112 H (75-99) mg/dL Microbiology - Last 24 Hours (Table) 06/13/18 17:00 Blood Culture - Preliminary Blood No Growth after 72 hours Assessment and Plan Assessment: Assessment: 1 acute asthma exacerbation with possibly an underlying left lower lobe pneumonia. The patient has areas of groundglass changes versus some was a continuation secondary to air trapping. Possibility of left lower lobe consolidation/atelectasis raises the concern for left lower lobe pneumonia as evident on the CAT scan of the chest 2 shortness of breath secondary to above 3 acute hypoxic respiratory failure secondary to above 4 history of polysubstance abuse including crack cocaine smoking and IV heroin, currently undergoing rehabilitation [place] 5 poor medical follow regarding bronchial asthma and medical care in general Plan: The patient was seen and evaluated by Dr. Cool. We did ambulate her up and down the hallway. O2 saturations stayed in the low 90s. Continue oxygen at 2 L /m per nasal cannula now. Continue with her current treatment plan. Probable discharge back to [place] rehab facility in the a.m. He is again educated regarding the importance of complete smoking cessation. I, the cosigning physician, performed a history & physical examination of the patient. Lungs sounds with bilateral end expiratory wheeze, scattered rhonchi.. Maintaining good O2 saturations in the 90s on 2 L/m per nasal cannula. I discussed the assessment and plan of care with my nurse practitioner, Heather Liz. I attest to the above note as dictated by her.
[2018-06-17] MEDS: LORazepam 0.5 MG TAB PO PRN (20:40)
[2018-06-18] MEDS: INSULIN ASPART (NovoLOG) 100 UNIT/ML VIAL SQ SCH ×2 (07:13→12:00)
[2018-06-18] MEDS: IPRATROPIUM-ALBUTEROL 3 ML NEB INHALATION SCH ×2 (07:30→11:04)
[2018-06-18] MEDS: BUDESONIDE 1 MG/2 ML NEBU INHALATION SCH (07:30)
[2018-06-18] MEDS: FORMOTEROL FUMARATE 20 MCG/2 ML NEBU INHALATION SCH (07:30)
[2018-06-18 07:41] VITALS: BP 110/74; TEMP 98.2
[2018-06-18] MEDS: HEPARIN SODIUM,PORCINE 5,000 UNIT/ML 1 ML VIAL SQ SCH (08:23)
[2018-06-18] MEDS: AZITHROMYCIN 500 MG TAB PO SCH (08:24)
[2018-06-18] MEDS: PANTOPRAZOLE 40 MG TABLET PO SCH (08:24)
[2018-06-18] MEDS: NICOTINE 14MG/24HR PATCH TRANSDERM SCH (08:24)
[2018-06-18] MEDS: guaiFENesin-DM 600/30MG 1 EACH TAB.ER.12H PO SCH (08:25)
[2018-06-18] MEDS ORDERED: predniSONE 20 MG TAB PO SCH (09:00)
[2018-06-18 10:43] VITALS: RESP 18
[2018-06-18 11:15] VITALS: PULSE 80
--- NOTE | 2018-06-18 13:09 | P.PN ---
Subjective Progress Note Date: 06/18/18 Principal diagnosis: Acute exacerbation of moderate intermittent asthma, complicated by suspected underlying left lower lobe pneumonia. A very pleasant 28-year-old female patient of my history of childhood asthma, also history of polysubstance abuse including crack cocaine smoking and IV heroin who was sent over from [place] as the patient became progressively more short of breath while being rehabilitated for substance abuse. This patient has been there for at least 1-1/2 weeks. She was progressively getting worse. Apparently she was not being given her albuterol solution on a regular basis and she was receiving it only once a day. She subsequently became progressively more short of breath and she started having increased cough congestion. She felt that she was coming down with a respiratory tract infection also. She is a chronic smoker in she is to smoker 1 pack of cigarettes a day. She presented emergency department. She was given back-to- back treatments. She was placed on 100% nonrebreather facemask. Following that a chest x-ray was obtained that showed no evidence of an acute pneumonia. She she was weaned down to 15 L of oxygen by nasal cannula and she was admitted to the medical floor. No altered mentation. No hemoptysis no pleurisy. She is congested and she is having a congested cough with some limited sputum production. She is not using excessive muscle breathing. She tells that she has been maintained on any form of maintenance respiratory medications regarding her bronchial asthma. She has been mainly relying on her albuterol rescue inhaler and solution on estimated basis. She lives in [facility] Based on her ongoing hypoxemia , I will obtain a CAT scan of the chest and there is some atelectatic changes and left lung base along with some early consolidation and the possibility of a pneumonia cannot be completely excluded. There is some areas of Mohs a continuation which is probably a [place]. Underlying groundglass pulmonary infiltrates cannot be completely excluded. Atypical pulmonary infection cannot be completely ruled out. She has no hemoptysis. No symptoms of drug withdrawal for the time being and the patient has gone through withdrawal while and [place].. No reported history of previous ventilator dependent respiratory failure. She has had poor adequate follow-up regarding her bronchial asthma. She has utilize any form of maintenance inhalers. No involvement of ALLERGIES. No nasal polyposis. No skin rashes. On 06/15/2018 she seen in follow-up on acute care unit, she is awake and alert, in no acute distress, FiO2 is down to 8 L, however patient's O2 sat is only between 85-87%, FiO2 was increased back up to keep the O2 sat at around 90%, lung sounds are less wheezy on today's exam, a few scattered rhonchi. Afebrile , hemodynamically stable, Today's labs have been reviewed, without cell count is 19.5, hemoglobin is 14.2. Influenza screen was negative. Patient is unaccompanied on Zithromax and Rocephin, nebulized bronchodilators, Pulmicort and Perforomist. And is on nicotine patch. She is somewhat irritable, she states she can't sleep, with frequent nursing checks. Believe she may be experiencing some withdrawal symptoms. Will be given a dose of IV Ativan for anxiety. Otherwise she is improving overall. Breathing easier, however not oriented to discharge, still requiring high amount of of oxygen. On 06/16/2017 patient seen in follow-up. Patient is breathing easier today, FiO2 is down to 5 L per high flow nasal cannula, and has been intermittently wearing 35% Ventimask, her pulse ox is around 90-91%. Afebrile, hemodynamically stable. Blood culture showed no growth. Empiric antibiotics in the form of Zithromax and Rocephin continue. Overall patient is slightly less congested and bronchospastic on today's exam, will continue weaning oxygen , continue with IV Solu-Medrol and breathing treatments. The patient was seen today 06/17/2018 in follow-up on the selective care unit. She is awake and alert in no acute distress. She is doing quite a bit better today as compared to yesterday. She is down to 2 L/m per nasal cannula to maintain O2 saturations in the 90s. She's been up ambulating in the hallway. She is coughing less and breathing easier. Still not quite back to her baseline. She is still on ceftriaxone and azithromycin. Bronchodilators. Pulmicort and Perforomist inhalations. IV Solu-Medrol. NicoDerm patch remains in place. She is more calm and cooperative today. The patient is seen today 06/18/2018 in follow-up on the regular medical floor. She is currently sitting up at the bedside. Awake and alert in no acute distress. She states she is doing quite a bit better. Just shy of her baseline. She does have some end expiratory wheeze with some few scattered rhonchi. She is maintaining good O2 saturations now in the 90s on room air. She's been afebrile. Hemodynamically stable. Blood cultures revealed no growth. White count 13.3. Hemoglobin 12.4. Creatinine 0.90. She is currently on Symbicort and albuterol. Objective - Vital Signs Vital signs: Vital Signs Temp 98.2 F 06/18/18 07:00 Pulse 80 06/18/18 11:14 Resp 18 06/18/18 10:43 BP 110/74 06/18/18 07:00 Pulse Ox 93 L 06/18/18 10:43 Intake & Output 06/17/18 06/18/18 06/18/18 18:59 06:59 18:59 Intake Total 500 Balance 500 Intake: Oral 500 Other: Voiding Method Toilet Toilet Toilet # Voids 1 - Exam GENERAL EXAM: Alert, active, comfortable in no apparent distress. On room air. HEAD: Normocephalic. EYES: Normal reaction of pupils, equal size. NOSE: Clear with pink turbinates. THROAT: No erythema or exudates. NECK: No masses, no JVD. CHEST: No chest wall deformity. LUNGS: Equal air entry with few scattered end expiratory wheeze, rhonchi. CVS: S1 and S2 normal with no audible murmur, regular rhythm. ABDOMEN: No hepatosplenomegaly, normal bowel sounds, no guarding or rigidity. SPINE: No scoliosis or deformity SKIN: No rashes CENTRAL NERVOUS SYSTEM: No focal deficits, tone is normal in all 4 extremities. EXTREMITIES: There is no peripheral edema. No clubbing, no cyanosis. Peripheral pulses are intact. - Labs CBC & Chem 7: 06/16/18 07:16 06/16/18 07:16 Labs: Microbiology - Last 24 Hours (Table) 06/13/18 17:00 Blood Culture - Preliminary Blood No Growth after 96 hours Assessment and Plan Assessment: Assessment: 1 acute asthma exacerbation with possibly an underlying left lower lobe pneumonia. The patient has areas of groundglass changes versus some was a continuation secondary to air trapping. Possibility of left lower lobe consolidation/atelectasis raises the concern for left lower lobe pneumonia as evident on the CAT scan of the chest and the patient has recovered and is improved. 2 shortness of breath secondary to above 3 acute hypoxic respiratory failure secondary to above 4 history of polysubstance abuse including crack cocaine smoking and IV heroin, currently undergoing rehabilitation [place] 5 poor medical follow regarding bronchial asthma and medical care in general Plan: The patient was seen and evaluated by Dr. Cool. She is now maintaining good O2 saturations in the 90s on room air. She plans to go back to [place] for continued rehabilitation today. She'll continue on Symbicort and albuterol. Continue prednisone taper. Complete her course of antibiotics. She is again educated regarding the importance of complete smoking cessation. NicoDerm patch remains in place. I, the cosigning physician, performed a history & physical examination of the patient. Lungs sounds with bilateral end expiratory wheeze, scattered rhonchi.. Maintaining good O2 saturations in the 90s on room air. I discussed the assessment and plan of care with my nurse practitioner, Heather Liz. I attest to the above note as dictated by her.
== END 2018-06-18 15:15 | disposition designated cancer center or children's hospital (05) | DRG 202 ==
LOC: EC 15:36 → 3SCARD 17:02 → 4MS4W 06-18 00:58
PROVIDERS: ADMIT Internal Medicine; ATTEND Internal Medicine
DX: J45.22 Mild intermittent asthma with status asthmaticus (principal); J96.01 Acute respiratory failure with hypoxia; T17.990A Other foreign object in respiratory tract, part unspecified in causing asphyxiation, initial encounter; B19.20 Unspecified viral hepatitis C without hepatic coma; F14.10 Cocaine abuse, uncomplicated; F11.10 Opioid abuse, uncomplicated; F41.9 Anxiety disorder, unspecified; Z71.6 Tobacco abuse counseling; F17.210 Nicotine dependence, cigarettes, uncomplicated; M19.90 Unspecified osteoarthritis, unspecified site; Z91.5 Personal history of self-harm; Z87.81 Personal history of (healed) traumatic fracture; Z83.3 Family history of diabetes mellitus; Z82.49 Family history of ischemic heart disease and other diseases of the circulatory system
CPT/HCPCS: 36415; 71046; 71275; 80048; 80053; 80074; 83735; 85025; 87040; 87502; 94640; 94660; 94760; 96361; 96365; 96372; 96375; 99291